=== PATIENT | male | born 1960 | race Caucasian/White ===

== ENCOUNTER → 2019-12-22 18:54 | Outpatient (BNVA) | payer MEDICAID, SELFPAY | PROVIDERS: Family Provider Family Medicine; PCP Family Medicine; Visit Provider Family Medicine | DX: I10 Essential (primary) hypertension (principal); I20.8 Other forms of angina pectoris; I25.810 Atherosclerosis of coronary artery bypass graft(s) without angina pectoris; K21.9 Gastro-esophageal reflux disease without esophagitis; J45.909 Unspecified asthma, uncomplicated; E11.9 Type 2 diabetes mellitus without complications; E11.65 Type 2 diabetes mellitus with hyperglycemia; Z79.4 Long term (current) use of insulin | CPT/HCPCS: 80053; 80061; 83036; 85025 ==

== ENCOUNTER → 2020-12-11 10:56 | Outpatient (BNVA) | payer MEDICAID, SELFPAY | PROVIDERS: Family Provider Family Medicine; PCP Family Medicine; Visit Provider Family Medicine | DX: I10 Essential (primary) hypertension (principal); E11.69 Type 2 diabetes mellitus with other specified complication; I25.810 Atherosclerosis of coronary artery bypass graft(s) without angina pectoris; K21.9 Gastro-esophageal reflux disease without esophagitis; Z79.4 Long term (current) use of insulin; J45.909 Unspecified asthma, uncomplicated; Z68.31 Body mass index [BMI] 31.0-31.9, adult; F17.210 Nicotine dependence, cigarettes, uncomplicated | CPT/HCPCS: 80053; 80061; 83036; 84443; 85025 ==

== ENCOUNTER → 2021-05-23 09:55 | Outpatient (BNVA) | payer MEDICAID, SELFPAY | PROVIDERS: Family Provider Family Medicine; PCP Family Medicine; Visit Provider Family Medicine | DX: J45.909 Unspecified asthma, uncomplicated (principal); I10 Essential (primary) hypertension; E11.69 Type 2 diabetes mellitus with other specified complication; I25.810 Atherosclerosis of coronary artery bypass graft(s) without angina pectoris; K21.9 Gastro-esophageal reflux disease without esophagitis; Z79.4 Long term (current) use of insulin | CPT/HCPCS: 80053; 80061; 83036; 84443; 85025 ==

== ENCOUNTER → 2021-10-23 10:52 | Outpatient (BNVA) | payer MEDICAID, SELFPAY | PROVIDERS: Family Provider Family Medicine; PCP Family Medicine; Visit Provider Nurse Practitioner Family | DX: Z12.5 Encounter for screening for malignant neoplasm of prostate (principal); E11.9 Type 2 diabetes mellitus without complications; I10 Essential (primary) hypertension; E78.00 Pure hypercholesterolemia, unspecified; Z79.4 Long term (current) use of insulin; I25.10 Atherosclerotic heart disease of native coronary artery without angina pectoris; J45.909 Unspecified asthma, uncomplicated | CPT/HCPCS: 80053; 80061; 83036; 84153 ==

== ENCOUNTER → 2022-02-04 10:23 | Outpatient (BNVA) | payer MEDICAID, SELFPAY | PROVIDERS: Family Provider Family Medicine; PCP Family Medicine; Visit Provider Nurse Practitioner Family | DX: I25.10 Atherosclerotic heart disease of native coronary artery without angina pectoris (principal); J45.909 Unspecified asthma, uncomplicated; I10 Essential (primary) hypertension; K21.9 Gastro-esophageal reflux disease without esophagitis; I25.810 Atherosclerosis of coronary artery bypass graft(s) without angina pectoris; Z12.11 Encounter for screening for malignant neoplasm of colon; Z53.20 Procedure and treatment not carried out because of patient's decision for unspecified reasons | CPT/HCPCS: 80053; 80061; 83036 ==

== ENCOUNTER → 2022-06-17 10:00 | Outpatient (BNVA) | payer MEDICAID, SELFPAY | PROVIDERS: Family Provider Family Medicine; PCP Family Medicine; Visit Provider Nurse Practitioner Family | DX: I25.10 Atherosclerotic heart disease of native coronary artery without angina pectoris (principal); J45.909 Unspecified asthma, uncomplicated; I10 Essential (primary) hypertension; E11.9 Type 2 diabetes mellitus without complications; Z79.4 Long term (current) use of insulin; E78.00 Pure hypercholesterolemia, unspecified; I25.810 Atherosclerosis of coronary artery bypass graft(s) without angina pectoris; K21.9 Gastro-esophageal reflux disease without esophagitis | CPT/HCPCS: 80053; 80061; 83036 ==

== ENCOUNTER → 2022-06-25 12:22 | Outpatient (BNVA) | payer MEDICAID, SELFPAY | PROVIDERS: Family Provider Family Medicine; PCP Family Medicine; Visit Provider Nurse Practitioner Family | DX: J45.909 Unspecified asthma, uncomplicated (principal); J18.9 Pneumonia, unspecified organism; J44.9 Chronic obstructive pulmonary disease, unspecified; F17.200 Nicotine dependence, unspecified, uncomplicated; I10 Essential (primary) hypertension; E11.9 Type 2 diabetes mellitus without complications; Z79.4 Long term (current) use of insulin | CPT/HCPCS: 80053 ==

== ENCOUNTER → 2022-07-25 13:55 | Outpatient (BNVA) | payer MEDICAID, SELFPAY | PROVIDERS: Family Provider Family Medicine; PCP Family Medicine; Visit Provider Nurse Practitioner Family | DX: J18.9 Pneumonia, unspecified organism (principal) | CPT/HCPCS: 71046 ==

== ENCOUNTER → 2022-08-06 11:34 | Outpatient (BNVA) | payer MEDICAID, SELFPAY | PROVIDERS: Family Provider Family Medicine; PCP Family Medicine; Visit Provider Nurse Practitioner Family | DX: J18.9 Pneumonia, unspecified organism (principal); J44.9 Chronic obstructive pulmonary disease, unspecified; J45.909 Unspecified asthma, uncomplicated | CPT/HCPCS: 71046; 80053 ==

== ENCOUNTER 2022-12-21 14:25 | Inpatient (IN) | payer MEDICAID, SELFPAY ==
[2022-12-21] VITALS (14 sets, daily range): BP systolic 115–189; BP diastolic 72–104; PULSE 75–110; RESP 16–34; TEMP 36.4–37.1; O2SAT 91–99; BMI 33.2
--- NOTE | 2022-12-21 14:42 | ECG_ITS ---
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1960 Requested By: Morgan Briscoe Order Number: [id number] Reading MD: NICOLE MORALES Measurements Intervals [place] Rate: 108 P: 60 DC: 198 QRS: 105 QRSD: 81 T: 85 QT: 334 QTc: 448 Interpretive Statements SINUS TACHYCARDIA WITH OCCASIONAL VENTRICULAR PREMATURE COMPLEXES RIGHT AXIS DEVIATION [QRS AXIS > 100] PATTERN CONSISTENT WITH PULMONARY DISEASE NONSPECIFIC T-WAVE ABNORMALITY No previous ECG available for comparison Electronically Signed On 12-21-2022 23:33:24 CDT by NICOLE MORALES [email or web address] medical centeriAdvize/store/[id number]
--- NOTE | 2022-12-21 15:43 | XRR_ITS ---
PROCEDURE INFORMATION: Exam: XR Chest Exam date and time: 12/21/2022 3:49 PM Age: 62 years old Clinical indication: Shortness of breath; Prior surgery; Surgery type: Heart stents TECHNIQUE: Imaging protocol: Radiologic exam of the chest. Views: 1 view. COMPARISON: CR XR chest 2V* [id number] 08/06/2022 11:40 AM FINDINGS: Lungs: Unremarkable. No consolidation. Pleural spaces: Elevated right hemidiaphragm. No pleural effusion. No pneumothorax. Heart/Mediastinum: Unremarkable. No cardiomegaly. Bones/joints: Unremarkable. Left upper lobe parenchymal density seen on prior examination has now resolved XR/XR chest 1V portable [id number] IMPRESSION: Elevated right hemidiaphragm No acute findings.
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
[2022-12-21 15:52] LABS: Basophils % 0.3 %; Hematocrit 47.6 % (42.0-52.0); Hemoglobin 14.6 g/dL (11.7-16.6); Lymphocytes # 0.8 10^3/uL (0.8-4.8); Lymphocytes % 12.5 %; Mean Corpuscular HGB Conc 30.7 g/dL (30.0-36.0); Mean Corpuscular Hemoglobin 27.4 pg (28.0-34.0); Mean Corpuscular Volume 89.5 fl (80-94); Mean Platelet Volume 10.7 fL (7.4-10.4); Monocytes # 0.5 10^3/uL (0.2-0.9); Monocytes % 8.4 %; Neutrophils # 4.77 10^3/uL (1.8-7.7); Neutrophils % 78.5 %; Nucleated Red Blood Cells % 0 %; Platelet Count 194 10^3/cmm (130-400); Red Blood Count 5.32 10^6/uL (4.1-5.3); Red Cell Distribution Width 14.2 % (12.1-15.1); White Blood Count 6.1 10^3/uL (4.0-10.0)
[2022-12-21] MEDS: FUROsemide 10 mg/mL SDV 4mL 40 MG IVP (15:52)
[2022-12-21] MEDS: ipratropium-albuterol 3 mL Neb INHALATION ×2 (15:59→23:25)
--- NOTE | 2022-12-21 16:12 | PC.NURSE ---
Pt refused covid and flu swabs
[2022-12-21 16:16] LABS: ABG PH Result 7.51 (7.35-7.45); Arterial Blood Gas Hematocrit 44.9 % (42-52); Base Excess ABG 4.9 mmol/L (-2.0-2.0); Blood Gas Allen Test Pos; Blood Gas Operator Identificat CAK; Blood Gas Sample Site Radial, left; Blood Gas Sample Type Arterial; Carboxyhemoglobin 1.4 %THgb (0.4-20.1); HCO3 ABG 27.8 mmol/L (22-26); HGB O2 Sat 97.6 % (95-100); Oxygen Device NC; Total Hemoglobin 14.7 g/dL (14-18)
[2022-12-21 16:19] LABS: Alanine Aminotransferase 75 U/L (0-41); Alkaline Phosphatase 126 U/L (40-130); Anion Gap 15.1 (5-19); Aspartate Amino Transferase 120 U/L (0-40); Blood Urea Nitrogen 14 mg/dL (8-23); Calcium 9.2 mg/dL (8.5-10.5); Carbon Dioxide 29 mmol/L (22-29); Chloride 93 mmol/L (98-107); Globulin 4.1 g/dL (1.3-4.6); Glomerular Filtration Rate 85.8 mL/min (90-130); Glucose 136 mg/dL (65-115); Osmolality Calculated 279 mOsm/kg (285-295); Potassium 4.1 mmol/L (3.5-5.1); Sodium 133 mmol/L (136-145); Total Protein 8.1 g/dL (6.6-8.7)
--- NOTE | 2022-12-21 17:56 | P.HP_ITS ---
Providers/Chief Complaint Primary Care Provider: Clau Wong NP Chief Complaint: Sob\Little Chest Pain\ History of Present Illness Ottoniel Rollins is a 62 year old male with past medical history of hypertension diabetes COPD not on home oxygen, coronary artery disease status post stent came in today with chief complaint of worsening shortness of breath going on for the last 4 to 5 days, and has worsened progressively, currently is complaining of orthopnea, shortness of breath with minimal exertion, cough. He has denied any chest pain palpitation diaphoresis nausea vomiting, though he said that he feels febrile, and also has chills. X-ray chest has not shown any: Pulm vascular congestion infiltrates consolidation EKG sinus tach with with occasional PVCs Pertinent labs: WBC 6.1, H&H 14/47,PLT : 194 , serum sodium 136 serum potassium 4.1, BUN 14 serum creatinine 0.9 Patient received nebs, steroids, and Lasix one-time dose in the ER Review of Systems General: Reports: 10 or more systems reviewed and unremarkable except in HPI and below Const: Denies: body aches, change in appetite or diaphoresis Card: Reports: dyspnea on exertion and orthopnea; Denies: palpitations Resp: Reports: dyspnea and wheezing; Denies: pain on inspiration GI: Denies: abdominal pain, nausea, vomiting, diarrhea or constipation : Denies: flank pain or difficulty urinating Musc: Denies: back pain, extremity pain or extremity swelling Neuro: Denies: headache(s), difficulty walking or confusion Medications/Allergies Home Medications Medication Instructions Recorded Confirmed Last Taken Type blood sugar diagnostic #150 ea 10/23/21 09/02/22 Unknown Rx nitroglycerin 0.4 mg sublingual 0.4 mg sublingual Q5M PRN chest 10/23/21 09/02/22 Unknown Rx tablet pain #25 tabs glucagon 1 mg solution for 1 mg SUBCUT Q20M PRN hypoglycemia 12/06/21 09/02/22 Unknown Rx injection (GlucaGen HypoKit) #1 ea DIABETIC INSOLES #1 ea 02/04/22 09/02/22 Unknown Rx DIABETIC SHOES #1 ea 02/04/22 09/02/22 Unknown Rx fexofenadine 180 mg tablet 180 mg PO DAILY #30 tabs 02/04/22 09/02/22 Unknown Rx (Vannessa Allergy) fluticasone propionate 50 2 spray intranasal DAILY #16 grams 02/04/22 09/02/22 Unknown Rx mcg/actuation nasal spray,suspension (Flonase Allergy Relief) fluticasone propionate 44 See Rx Instructions .Route 05/14/22 09/02/22 Unknown Rx mcg/actuation HFA aerosol inhaler .COMPLEX #31.8 grams (Flovent HFA) lancets #100 ea 06/17/22 09/02/22 Unknown Rx NEBULIZER MACHINE AND TUBING #1 ea 06/21/22 09/02/22 Unknown Rx blood-glucose meter #1 ea 06/21/22 09/02/22 Unknown Rx nebulizer tubing and supplies #1 ea 06/25/22 09/02/22 Unknown Rx nicotine 21 mg/24 hr daily 1 patch transdermal Q24H #28 ea 06/25/22 08/06/22 Unknown Rx transdermal patch (Nicoderm CQ) albuterol sulfate 90 mcg/actuation See Rx Instructions .Route 09/02/22 09/02/22 Unknown Rx aerosol inhaler (ProAir HFA) .COMPLEX #17 grams budesonide 160 mcg-glycopyr 9 2 inh inhalation BID 30 days #10.7 09/02/22 09/02/22 Unknown Rx mcg-formot 4.8 mcg/actuation HFA grams inhaler (Breztri Aerosphere) dapagliflozin 5 mg tablet (Farxiga) 5 mg PO QAM 30 days #30 tabs 09/02/22 09/02/22 Unknown Rx insulin NPH isoph U-100 human 100 See Rx Instructions .Route 09/02/22 09/02/22 Unknown Rx unit/mL subcutaneous suspension .COMPLEX #110 mL (Humulin N NPH U-100 Insulin (isophane susp)) insulin lispro 100 unit/mL See Rx Instructions .Route 09/02/22 09/02/22 Unknown Rx subcutaneous solution (Humalog .COMPLEX #80 mL U-100 Insulin) ipratropium 0.5 mg-albuterol 3 mg 3 ml inhalation QID PRN wheezing 09/02/22 09/02/22 Unknown Rx (2.5 mg base)/3 mL nebulization #180 mL soln metoprolol tartrate 25 mg tablet 12.5 mg PO BID #90 tabs 09/02/22 09/02/22 Unknown Rx potassium chloride 10 mEq 10 meq PO DAILY #30 caps 09/02/22 09/02/22 Unknown Rx capsule,extended release prasugrel 10 mg tablet 10 mg PO DAILY #30 tabs 09/02/22 09/02/22 Unknown Rx prednisone 10 mg tablets in a dose See Rx Instructions PO PER PKG DIR 09/02/22 09/02/22 Unknown Rx pack #21 ea promethazine-DM 6.25 mg-15 mg/5 mL 5 ml PO Q6H PRN cough #200 mL 09/02/22 09/02/22 Unknown Rx oral syrup sucralfate 1 gram tablet 1 g PO QID #120 tabs 09/02/22 09/02/22 Unknown Rx temazepam 30 mg capsule 30 mg PO .QHS 90 days #90 caps 09/11/22 Unknown Rx blood sugar diagnostic (Blood #50 ea 10/10/22 Unknown Rx Glucose Test strips) bumetanide 1 mg tablet See Rx Instructions .Route 11/07/22 Unknown Rx .COMPLEX #60 tabs clonidine HCl 0.1 mg tablet 0.1 mg PO TID #90 tabs 11/07/22 Unknown Rx insulin syringe-needle U-100 1 mL See Rx Instructions .Route 12/04/22 Unknown Rx 31 gauge x 5/16 (BD Insulin .COMPLEX #200 ea Syringe Ultra-Fine) Allergies Allergy/AdvReac Type Severity Reaction Status Date / Time Olbfgeu-XME-XbZ Reductase Allergy Intermediate muscle Verified 02/04/22 09:04 Inhibitor detioration [Ecogxdy-Euz-Hlq Reductase Inhibitor] magnesium Allergy ADR-Cramping Verified 02/04/22 09:04 of the Muscles PFSH Acute PFSH: Medical History Abnormal x-ray Allergic rhinitis ASHD (arteriosclerotic heart disease) Asthma Colon cancer screening Colon cancer screening declined Diabetes mellitus type 2, insulin dependent Pneumonia Prostate cancer screening Seasonal allergies Smoking addiction Family History Father Cancer Mother Diabetes Hyperlipidemia Hypertension Social History Smoking and tobacco status: never smoked Second hand smoke exposure: Yes Smoking risk assessment/counseling performed?: No Alcohol intake: unknown Desire information about substance/drug rehabilitation?: No Counseling given: No Other details last substance use: clean since 2014 Household members: spouse Marital status: Vitals/I&O/Wt Last Vital Signs Temp 98.8 F 12/21/22 14:36 Pulse 110 H 12/21/22 16:04 Resp 16 12/21/22 16:02 BP 181/99 12/21/22 16:02 Pulse Ox 93 12/21/22 16:02 O2 Del Method 12/21/22 16:02 O2 Flow Rate 3 12/21/22 15:50 Weight last 48 hrs Weight 111.13 kg Physical Exam Const: COMMON NORMALS: patient oriented x3 HENMT: COMMON NORMALS: normocephalic and atraumatic HEAD & SCALP: normocephalic and atraumatic Resp: OTHER: B/L EXPIRATORY WHEEZING PRESENT IN BOTH THE LUNGS [place]EN[place] Cardio: COMMON NORMALS: regular rate, regular rhythm, S1 normal heart sound present, S2 normal heart sound present, No gallops present (Cardio), No murmurs present (Cardio), No rub (Cardio) and Peripheral pulses 2+ throughout RATE: regular rate RHYTHM: regular rhythm HEART SOUNDS: S1 normal heart sound p resent and S2 normal heart sound present PERIPHERAL PULSES: Peripheral pulses 2+ throughout GI: COMMON NORMALS: Normal to inspection, nondistended, normoactive bowel sounds present, Soft to palpation, non-tender, No hepatosplenomegaly present and no masses AUSCULTATION: Yes normoactive bowel sounds PALPATION: Yes Soft to palpation and Yes No hepatosplenomegaly present RECTAL EXAM: Yes deferred Extremity: COMMON NORMALS: no clubbing, cyanosis or edema and no pedal edema Neuro: COMMON NORMALS: patient oriented x3 Data 12/21/22 15:22 12/21/22 15:22 A&P Assessment and plan (1) COPD exacerbation: (2) Hypoxia: (3) ASHD (arteriosclerotic heart disease): (4) Essential hypertension: (5) Diabetes mellitus type 2, insulin dependent: Plan 62 year old male with past medical history of hypertension diabetes COPD not on home oxygen, coronary artery disease status post stent came in today with chief complaint of worsening shortness of breath going on for the last 4 to 5 days, and has worsened progressively, currently is complaining of orthopnea, shortness of breath with minimal exertion, cough. He has denied any chest pain palpitation diaphoresis nausea vomiting, though he said that he feels febrile, and also has chills. Assessment: COPD exacerbation Continue DuoNebs, steroids, azithromycin IV, supplemental oxygen as needed Monitor x-ray chest and ABG as needed Antitussives History of coronary artery disease s/p stent: Continue prasugrel Given his complaint of orthopnea, worsening shortness of breath, will do 2D echo, for further evaluation. History of hypertension: Continue clonidine, and metoprolol History of diabetes: Continue sliding scale insulin, monitor fingerstick glucose, diabetic diet CODE STATUS; full code DVT prophylaxis on Lovenox Attestations Medical Necessity Statement*: Patient is to be in hospital management of COPD exacerbation.Anticipated length of stay greater 2 midnights Coding Level of Care Code 82684 Diagnoses COPD exacerbation J44.1 Hypoxia R09.02 ASHD (arteriosclerotic heart disease) I25.10 Essential hypertension I10 Diabetes mellitus type 2, insulin dependent E11.9; Z79.4
[2022-12-21] MEDS: metoprolol tartrate 25 mg Tablet 12.5 MG PO (19:35)
[2022-12-21 21:15] LABS: Glucose Point of Care 194 mg/dL (70-110)
--- NOTE | 2022-12-21 21:50 | PC.NURSE ---
Patient refusing Flu and COVID tests stating that it is against his oriental orthodox. No pork or shellfish-containing products per patient per his oriental orthodox.
[2022-12-21] MEDS: temazepam 15 mg Capsule 30 MG PO (21:56)
[2022-12-21] MEDS: cloNIDine 0.1 mg Tablet PO (21:56)
[2022-12-21] MEDS: azithromycin 500 MG in sodium chloride 0.9% 250 ML 250 MG IV (22:22)
--- NOTE | 2022-12-21 22:47 | PC.NURSE ---
Signed blood refusal form in chart.
[2022-12-21 23:05] LABS: Glucose Point of Care 207 mg/dL (70-110)
--- NOTE | 2022-12-21 23:17 | ECG_ITS ---
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1960 Requested By: Campbell Leslie Order Number: [id number] Reading MD: NICOLE MORALES Measurements Intervals [place] Rate: 96 P: 56 [place]: 218 QRS: 100 QRSD: 85 T: 60 QT: 354 QTc: 449 Interpretive Statements SINUS RHYTHM WITH FIRST DEGREE AV BLOCK BORDERLINE RIGHT AXIS DEVIATION [QRS AXIS > 90] PATTERN CONSISTENT WITH PULMONARY DISEASE NONSPECIFIC T-WAVE ABNORMALITY Compared to ECG 12/21/2022 14:48:30 First degree AV block now present Sinus tachycardia no longer present Ventricular premature complex(es) no longer present T-wave abnormality still present Electronically Signed On 12-21-2022 23:31:37 CDT by NICOLE MORALES [email or web address]/[id number]
[2022-12-21] MEDS: budesonide 0.5 mg/2 mL Neb INHALATION (23:27)
--- NOTE | 2022-12-21 23:42 | PC.NURSE ---
This nurse was called into patient's room by another rn. Patient was experiencing labored breathing, using abdominal muscles to breathe and grunting. O2 sat 95% on 3L simple mask. Patient had a new onset confusion. Respiratory was called. Dr. Leslie was notified and came up to see patient. Transfer orders put in to ICU. Edmar's states that patient has sleep apnea but insurance would not cover a cpap at home.
[2022-12-21 23:43] LABS: D Dimer 1.34 ug/mIFEU (0-0.59)
[2022-12-21 23:47] LABS: Troponin(5th) Baseline 31 ng/L (0-15)
--- NOTE | 2022-12-21 23:50 | W.PM.EVENTAC ---
Event Note Event Note: Shortly after 2300 patient in respiratory distress, diaphoretic, tachypneic, using accessory muscles of respiration. Regular tachycardia low 100s. Saturating in high 90s on 3 L nasal cannula. Has history of CAD, IN x3, but no chest pain or pressure. Obtain stat EKG, troponin, D-dimer. Noted admitted for assessment management of COPD exacerbation. ABG 7.51/35/110/20 7.8. Past medical history includes asthma. Discussing with his he also has sleep apnea and she states especially when he falls asleep breathing gets very weird . Discussed with RT, nursing staff. He is getting a breathing treatment. He states he is feeling better. Appears to be improving, but still using accessory muscles, although this does not sound like he is very much different from his baseline from what he tells me. Mild wheezing, diminished air entry. When he dozes off while discussing with his , he is noted to have quite significant apnea. They state that he has had a sleep study in the past, but he has not been able to afford a CPAP. With asthmatic/bronchospastic component given an extra breathing treatment, we are increase frequency of breathing treatments to every 4 hours scheduled, as well as every 2 hours as needed. We will reset Solu-Medrol additionally with additional dose currently, continue 60 mg every 6 hours thereafter. Patient and his state he is very intolerant of magnesium. Additionally his states symptoms seem to start while he was in the light of receiving azithromycin. Does not appear to have rash or any other symptoms of allergic reaction. Cannot exclude bronchospasm triggered by azithromycin, will discontinue medication at this time, switch antibiotic to Levaquin. I am told he additionally declined viral swabs. Keep on isolation. Follow-up troponin EKG series, D-dimer. Discussed with them regarding performing CT angiogram PE protocol in case D-dimer abnormal to further assess for PE. For now moved to ICU for intensive monitoring and treatment due to respiratory distress episode and bronchospasm. Case management consultation and he will need continued attempts to arrange for treatment for sleep apnea. Event Notes Attestations Time Spent in Patient Care: Critical care time 35 minutes.
[2022-12-21 23:54] LABS: ABG PCO2 48.8 mmHg (35-45); ABG PH Result 7.37 (7.35-7.45); Arterial Blood Gas Hematocrit 43.4 % (42-52); Base Excess ABG 1.9 mmol/L (-2.0-2.0); Blood Gas Sample Site Brachial, right; Blood Gas Sample Type Arterial; HCO3 ABG 28.1 mmol/L (22-26); Oxygen Device OXY MASK
[2022-12-22] VITALS (23 sets, daily range): BP systolic 114–134; BP diastolic 73–95; PULSE 85–109; RESP 16–32; TEMP 36.4–36.7; O2SAT 86–98; BMI 31.3
--- NOTE | 2022-12-22 | PC.NURSE ---
Report given to Lynsey in ICU
[2022-12-22] MEDS: iohexol 350 mg/mL 500 mL Btl (per mL) IV (00:07)
--- NOTE | 2022-12-22 01:02 | USR_ITS ---
PROCEDURE INFORMATION: Exam: US Duplex Lower Extremity Veins, Bilateral Exam date and time: 12/22/2022 1:21 AM Age: 62 years old Clinical indication: Edema, localized; Lower extremity, bilateral; Additional info: Assess for dvt TECHNIQUE: Imaging protocol: Real-time duplex ultrasound of the bilateral extremities with 2-D jeffries scale, color Doppler flow and spectral waveform analysis including responses to compression and other maneuvers (when performed) with image documentation. Complete exam focused on the lower extremity veins. COMPARISON: No relevant prior studies available. FINDINGS: Evaluated veins include bilateral common femoral, proximal profunda femoral, proximal/mid/distal superficial femoral, popliteal, posterior tibial, peroneal, anterior tibial, and proximal greater saphenous veins. Right leg: No visible clot in the included veins. The included veins appear normally compressible. Duplex Doppler evaluation demonstrates flow in the evaluated veins. Left leg: No visible clot in the included veins. The included veins appear normally compressible. Duplex Doppler evaluation demonstrates flow in the evaluated veins. US/[id number] IMPRESSION: 1. No evidence of acute right lower extremity DVT. 2. No evidence of acute left lower extremity DVT.
[2022-12-22] MEDS: apixaban 5 mg Tablet 10 MG PO (01:29)
[2022-12-22] MEDS: levofloxacin-dextrose 5 % 750 MG/150 ML PREMIX 100 MG IV (01:30)
[2022-12-22 01:55] LABS: Troponin 5 2HR 31.24 ng/L (0-15)
[2022-12-22 02:20] LABS: Troponin 5 2HR Delta 0.24 ABS# (0-10)
[2022-12-22] MEDS: ipratropium-albuterol 3 mL Neb INHALATION ×3 (03:10→12:34)
--- NOTE | 2022-12-22 03:14 | ECG_ITS ---
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
[2022-12-22 05:19] LABS: Hematocrit 43.6 % (42.0-52.0); Hemoglobin 13.3 g/dL (11.7-16.6); Lymphocytes # 0.5 10^3/uL (0.8-4.8); Lymphocytes % 12.4 %; Mean Corpuscular HGB Conc 30.5 g/dL (30.0-36.0); Mean Corpuscular Hemoglobin 27.5 pg (28.0-34.0); Mean Corpuscular Volume 90.3 fl (80-94); Mean Platelet Volume 10.9 fL (7.4-10.4); Monocytes # 0.1 10^3/uL (0.2-0.9); Monocytes % 2.7 %; Neutrophils # 3.48 10^3/uL (1.8-7.7); Neutrophils % 84.4 %; Nucleated Red Blood Cells % 0 %; Platelet Count 170 10^3/cmm (130-400); Red Blood Count 4.83 10^6/uL (4.1-5.3); White Blood Count 4.1 10^3/uL (4.0-10.0)
[2022-12-22 05:47] LABS: Troponin 5 6HR 26.62 ng/L (0-15)
[2022-12-22 05:52] LABS: Troponin 5 6HR Delta -4.38 ng/L (0-12)
[2022-12-22 06:01] LABS: NT Pro B Type Natriuretic Pept 3039 pg/mL (0-125); Procalcitonin 0.08 ng/mL (0-0.5)
[2022-12-22 06:12] LABS: Alanine Aminotransferase 61 U/L (0-41); Albumin Level 3.3 g/dL (3.5-5.2); Alkaline Phosphatase 100 U/L (40-130); Anion Gap 16.4 (5-19); Aspartate Amino Transferase 93 U/L (0-40); Blood Urea Nitrogen 21 mg/dL (8-23); Calcium 8.8 mg/dL (8.5-10.5); Carbon Dioxide 28 mmol/L (22-29); Chloride 97 mmol/L (98-107); Globulin 2.9 g/dL (1.3-4.6); Glomerular Filtration Rate 85.8 mL/min (90-130); Glucose 202 mg/dL (65-115); Magnesium 1.7 mg/dL (1.7-2.3); Osmolality Calculated 293 mOsm/kg (285-295); Potassium 4.4 mmol/L (3.5-5.1); Sodium 137 mmol/L (136-145); Total Bilirubin 0.7 mg/dL (0.15-1.2); Total Protein 6.2 g/dL (6.6-8.7)
[2022-12-22] MEDS: budesonide 0.5 mg/2 mL Neb INHALATION (07:57)
[2022-12-22 08:44] LABS: Glucose Point of Care 209 mg/dL (70-110)
[2022-12-22] MEDS: insulin lispro 100 unit/1 mL SUBCUT ×2 (09:22→12:42)
--- NOTE | 2022-12-22 09:23 | P.DS_ITS ---
Discharge Providers Date of Admission: 12/21/22 17:51 Date of Discharge: December 22, 2022 Attending Provider at Admission: Mazin Ovalle MD Attending Provider at Discharge: Mazin Ovalle MD Primary Care Provider: Clau Wong NP Diagnoses at Discharge Discharge Diagnosis (1) COPD exacerbation: Status: Acute (2) Hypoxia: Status: Acute (3) ASHD (arteriosclerotic heart disease): Status: Acute (4) Essential hypertension: Status: Acute (5) Diabetes mellitus type 2, insulin dependent: Status: Acute Reason for Visit Reason for Visit: Sob\Little Chest Pain\ Hospital Course Hospital Course 62 year old male with past medical history of hypertension diabetes COPD not on home oxygen, coronary artery disease status post stent came in with chief complaint of worsening shortness of breath going on for the last 4 to 5 days, he was admitted for the management of COPD exacerbation, he was initially kept on DuoNebs steroids, azithromycin, supplemental oxygen as needed, patient on the day of admission and the night, exhibited worsening respiratory function, for which she received additional doses of steroids, azithromycin was discontinued, possibly thinking some reaction to it, and was started on levofloxacin, possibility of PE was also considered, D-dimer is slightly elevated, lower extremity Doppler vein was negative for DVT, patient received 1 dose of Eliquis overnight, he was advised to undergo CTA chest, which she denied, as they did not wanted any contrast exposure, they also denied VQ scan, patient also denied therapeutic anticoagulation. There is also concern for possible sleep apnea, patient agreed for sleep study. Patient was discharged home on prednisone 50 mg p.o. daily for 7 days, he will continue on home inhaler as well as nebs, he was also discharged on levofloxacin for additional 5 days, Bumex has been discontinued, as patient is currently well compensated, and currently is not in heart failure, he has been started on very low-dose of Lasix 20 p.o. daily, he was advised to, follow-up with his cardiology as outpatient, as well as his PCP.Overall patient responded well to above medical management, he has qualified for 2 L home oxygen. He is being discharged in stable condition to home. Physical Exam Const: COMMON NORMALS: patient oriented x3 HENMT: COMMON NORMALS: normocephalic and atraumatic HEAD & SCALP: normocephalic and atraumatic Resp: OTHER: B/L EXPIRATORY WHEEZING PRESENT IN BOTH THE LUNGS STEPHENSON improved as compared to yesterday on admission Cardio: COMMON NORMALS: regular rate, regular rhythm, S1 normal heart sound present, S2 normal heart sound present, No gallops present (Cardio), No murmurs present (Cardio), No rub (Cardio) and Peripheral pulses 2+ throughout RATE: regular rate RHYTHM: regular rhythm HEART SOUNDS: S1 normal heart sound present and S2 normal heart sound present PERIPHERAL PULSES: Peripheral pulses 2+ throughout GI: COMMON NORMALS: Normal to inspection, nondistended, normoactive bowel sounds present, Soft to palpation, non-tender, No hepatosplenomegaly present and no masses AUSCULTATION: Yes normoactive bowel sounds PALPATION: Yes Soft to palpation and Yes No hepatosplenomegaly present RECTAL EXAM: Yes deferred Extremity: COMMON NORMALS: no clubbing, cyanosis or edema and no pedal edema Neuro: COMMON NORMALS: patient oriented x3 Discharge Data Studies Completed and Pending Completed Studies During Hospitalization Category Date Time Status XR chest 1V portable [id number] Stat Exams 12/21/22 15:43 Completed CV venous duplex [facility] [id number] Routine Ultrasound 12/22/22 01:02 Completed Pending at discharge Category Date Time Status COVID [SARS Covid-2 Antigen] Routine Lab 12/21/22 16:09 Ordered Complete Blood Count w/Auto AM LABS Lab 12/23/22 04:00 Ordered Complete Blood Count w/Auto AM LABS Lab 12/24/22 04:00 Ordered Comprehensive Metabolic Panel AM LABS Lab 12/23/22 04:00 Ordered Comprehensive Metabolic Panel AM LABS Lab 12/24/22 04:00 Ordered D Dimer AM LABS Lab 12/23/22 04:00 Ordered D Dimer AM LABS Lab 12/24/22 04:00 Ordered Influenza A&B by IFA Stat Lab 12/21/22 16:09 Ordered CV. echo complete* [id number] Routine Ultrasound 12/22/22 06:00 Ordered Radiology Impressions Chest X-Ray 12/21/22 15:43 IMPRESSION: Elevated right hemidiaphragm No acute findings. Venous Duplex 12/22/22 01:02 IMPRESSION: 1. No evidence of acute right lower extremity DVT. 2. No evidence of acute left lower extremity DVT. Laboratory Results WBC 4.1 10^3/uL (4.0-10.0) 12/22/22 04:45 RBC 4.83 10^6/uL (4.1-5.3) 12/22/22 04:45 Hgb 13.3 g/dL (11.7-16.6) 12/22/22 04:45 Hct 43.6 % (42.0-52.0) 12/22/22 04:45 MCV 90.3 fl (80-94) 12/22/22 04:45 MCH 27.5 pg (28.0-34.0) L 12/22/22 04:45 MCHC 30.5 g/dL (30.0-36.0) 12/22/22 04:45 RDW 14.0 % (12.1-15.1) 12/22/22 04:45 Plt Count 170 10^3/cmm (130-400) 12/22/22 04:45 MPV 10.9 fL (7.4-10.4) H 12/22/22 04:45 Neut % (Auto) 84.4 % 12/22/22 04:45 Lymph % (Auto) 12.4 % 12/22/22 04:45 Overton % (Auto) 2.7 % 12/22/22 04:45 Eos % (Auto) 0.0 % 12/22/22 04:45 Baso % (Auto) 0.0 % 12/22/22 04:45 Neut # (Auto) 3.48 10^3/uL (1.8-7.7) 12/22/22 04:45 Lymph # (Auto) 0.5 10^3/uL (0.8-4.8) L 12/22/22 04:45 Overton # (Auto) 0.1 10^3/uL (0.2-0.9) L 12/22/22 04:45 Eos # (Auto) 0.0 10^3/uL (0.0-0.8) 12/22/22 04:45 Baso # (Auto) 0.0 10^3/uL (0.0-0.1) 12/22/22 04:45 Nucleated RBC % (auto) 0 % 12/22/22 04:45 Nucleated RBCs # 0.0 /100WBC 12/22/22 04:45 D-Dimer 1.20 ug/mIFEU (0-0.59) H 12/22/22 04:45 Specimen Type Arterial 12/21/22 23:43 Sample Site Brachial, right 12/21/22 23:43 ABG pH 7.37 (7.35-7.45) 12/21/22 23:43 ABG pCO2 48.8 mmHg (35-45) H 12/21/22 23:43 ABG pO2 117.0 mmHg (80.0-100.0) H 12/21/22 23:43 ABG HCO3 28.1 mmol/L (22-26) H 12/21/22 23:43 ABG Base Excess 1.9 mmol/L (-2.0-2.0) 12/21/22 23:43 Sumit Test N/a 12/21/22 23:43 Hematocrit 43.4 % (42-52) 12/21/22 23:43 Hgb O2 Saturation 97.6 % (95-100) 12/21/22 15:54 Carboxyhemoglobin 1.4 %THgb (0.4-20.1) 12/21/22 15:54 Methemoglobin 0.0 % (0.4-1.5) L 12/21/22 15:54 Total Hemoglobin 14.7 g/dL (14-18) 12/21/22 15:54 O2 Delivery Device Oxy mask 12/21/22 23:43 O2 Liters/Min 3.0 % 12/21/22 23:43 FiO2 32.0 % 12/21/22 23:43 Supervisor [employer] Saranya 12/21/22 23:43 Sodium 137 mmol/L (136-145) 12/22/22 04:45 Potassium 4.4 mmol/L (3.5-5.1) 12/22/22 04:45 Chloride 97 mmol/L (98-107) L 12/22/22 04:45 Carbon Dioxide 28 mmol/L (22-29) 12/22/22 04:45 Anion Gap 16.4 (5-19) 12/22/22 04:45 BUN 21 mg/dL (8-23) 12/22/22 04:45 Creatinine 0.9 mg/dL (0.7-1.2) 12/22/22 04:45 GFR Calculation 85.8 mL/min (90-130) L 12/22/22 04:45 Glucose 202 mg/dL (65-115) H 12/22/22 04:45 POC Glucose 209 mg/dL (70-110) H 12/22/22 08:40 Calculated Osmolality 293 mOsm/kg (285-295) 12/22/22 04:45 Calcium 8.8 mg/dL (8.5-10.5) 12/22/22 04:45 Magnesium 1.7 mg/dL (1.7-2.3) 12/22/22 04:45 Total Bilirubin 0.7 mg/dL (0.15-1.2) 12/22/22 04:45 AST 93 U/L (0-40) H 12/22/22 04:45 ALT 61 U/L (0-41) H 12/22/22 04:45 Alkaline Phosphatase 100 U/L (40-130) 12/22/22 04:45 Troponin T Baseline 31 ng/L (0-15) H 12/21/22 23:20 Troponin T 120 Minute 31.24 ng/L (0-15) H 12/22/22 01:10 Delta Troponin T 0.24 ABS# (0-10) 12/22/22 01:10 Troponin T Hi Sens 6Hr 26.62 ng/L (0-15) H 12/22/22 04:45 Troponin T Hi Sens 6Hr Delta -4.38 ng/L (0-12) L 12/22/22 04:45 NT-Pro-B Natriuret Pep 3039 pg/mL (0-125) H 12/22/22 04:45 Total Protein 6.2 g/dL (6.6-8.7) L D 12/22/22 04:45 Albumin 3.3 g/dL (3.5-5.2) L 12/22/22 04:45 Globulin 2.9 g/dL (1.3-4.6) 12/22/22 04:45 Procalcitonin 0.08 ng/mL (0-0.5) 12/22/22 04:45 Vitals Last Vital Signs Temp 97.8 F 12/22/22 04:00 Pulse 95 12/22/22 07:57 Resp 16 12/22/22 07:57 BP 115/75 12/22/22 06:00 Pulse Ox 88 L 12/22/22 07:57 O2 Del Method 03/19/23 07:57 O2 Flow Rate 4 12/22/22 03:10 FiO2 28 12/22/22 04:02 Discharge Plan Discharge Patient Disposition: Home Condition: Stable Prescriptions: New prednisone 50 mg tablet 50 mg PO DAILY 7 Days Qty: 7 0RF levofloxacin 500 mg tablet 500 mg PO DAILY 5 Days Qty: 5 0RF Lasix 40 mg tablet 20 mg PO DAILY Qty: 30 0RF benzonatate 100 mg capsule 100 mg PO TID PRN (Reason: cough) Qty: 20 0RF Continued (DME) blood sugar diagnostic Strip See Rx Instructions .ROUTE .MEDSUPPLY Qty: 150 6RF Rx Instructions: to test 5 times per day nitroglycerin 0.4 mg tablet, sublingual 0.4 mg SUBLINGUAL Q5M PRN (Reason: chest pain) Qty: 25 0RF Rx Instructions: Place one tablet under tongue as needed for chest pain every 5 minutes up to 3 doses fluticasone propionate [Flonase Allergy Relief] 50 mcg/actuation spray,suspension 2 spray intranasal DAILY Qty: 16 6RF Rx Instructions: administer into each nostril fexofenadine [Vannessa Allergy] 180 mg tablet 180 mg PO DAILY Qty: 30 6RF (DME) DIABETIC SHOES See Rx Instructions .Route .MEDSUPPLY Qty: 1 0RF Rx Instructions: DIABETIC SHOES (DME) DIABETIC INSOLES See Rx Instructions .Route .MEDSUPPLY Qty: 1 0RF Rx Instructions: FOR USE WITH DIABETIC SHOES promethazine-DM 6.25-15 mg/5 mL syrup 5 ml PO Q6H PRN (Reason: cough) Qty: 200 1RF Breztri Aerosphere 160-9-4.8 mcg/actuation HFA aerosol inhaler 2 inh inhalation BID 30 Days Qty: 10.7 11RF albuterol sulfate [ProAir HFA] 90 mcg/actuation HFA aerosol inhaler See Rx Instructions .ROUTE .COMPLEX Qty: 17 3RF Dose Instruction: inhale TWO puffs into lungs EVERY 4 TO 6 HOURS NEEDED FOR SHORTNESS OF BREATH Rx Instructions: inhale TWO puffs into lungs EVERY 4 TO 6 HOURS NEEDED FOR SHORTNESS OF BREATH Farxiga 5 mg tablet 5 mg PO QAM 30 Days Qty: 30 3RF insulin lispro [Humalog U-100 Insulin] 100 unit/mL solution See Rx Instructions .ROUTE .COMPLEX Qty: 80 4RF Dose Instruction: inject 50 units SUBCUTANEOUSLY DIRECTED 3-5 times daily Rx Instructions: inject 50 units SUBCUTANEOUSLY DIRECTED 3-5 times daily Humulin N NPH U-100 Insulin 100 unit/mL suspension See Rx Instructions .ROUTE .COMPLEX Qty: 110 1RF Dose Instruction: inject 100 units SUBCUTANEOUSLY TWICE DAILY Rx Instructions: inject 100 units SUBCUTANEOUSLY TWICE DAILY metoprolol tartrate 25 mg tablet 12.5 mg PO BID Qty: 90 3RF potassium chloride 10 mEq capsule, extended release 10 meq PO DAILY Qty: 30 3RF prasugrel 10 mg tablet 10 mg PO DAILY Qty: 30 3RF sucralfate 1 gram tablet 1 g PO QID Qty: 120 3RF ipratropium-albuterol 0.5 mg-3 mg(2.5 mg base)/3 mL solution for nebulization 3 ml inhalation QID PRN (Reason: wheezing) Qty: 180 1RF (DME) lancets Misc See Rx Instructions .ROUTE .MEDSUPPLY Qty: 100 4RF Rx Instructions: lancets to test 5 times per day. uses one touch nicotine [Nicoderm CQ] 21 mg/24 hr patch 24 hour 1 patch transdermal Q24H Qty: 28 0RF (DME) nebulizer tubing and supplies See Rx Instructions .Route .MEDSUPPLY Qty: 1 4RF Rx Instructions: As directed to be used with nebulizer machined. midst GlucaGen HypoKit 1 mg recon soln 1 mg SUBCUT Q20M PRN (Reason: hypoglycemia) Qty: 1 2RF Rx Instructions: until target blood sugar attained (DME) blood-glucose meter Kit See Rx Instructions .Route Qty: 1 0RF Rx Instructions: As directed CHECKING 5 TIMES DAILY (DME) NEBULIZER MACHINE AND TUBING See Rx Instructions .Route .MEDSUPPLY Qty: 1 0RF Rx Instructions: As directed temazepam 30 mg capsule 30 mg PO .QHS 90 Days Qty: 90 0RF (DME) Blood Glucose Test Strip See Rx Instructions .Route Qty: 50 5RF Rx Instructions: As directed TESTING 5 TIMES DAILY clonidine HCl 0.1 mg tablet 0.1 mg PO TID Qty: 90 2RF insulin syringe-needle U-100 [BD Insulin Syringe Ultra-Fine] 1 mL 31 gauge x 5/16 syringe See Rx Instructions .ROUTE .COMPLEX Qty: 200 4RF Dose Instruction: USE EIGHT syringes PER DAY Rx Instructions: USE EIGHT syringes PER DAY fluticasone propionate 44 mcg/actuation HFA aerosol inhaler See Rx Instructions .ROUTE .COMPLEX 30 Days Qty: 31.8 2RF Dose Instruction: inhale TWO puffs into lungs TWICE DAILY Rx Instructions: inhale TWO puffs into lungs TWICE DAILY Discontinued prednisone 10 mg tablets,dose pack See Rx Instructions PO PER PKG DIR Qty: 21 0RF Rx Instructions: PO PER PKG DIR bumetanide 1 mg tablet See Rx Instructions .ROUTE .COMPLEX Qty: 60 1RF Dose Instruction: TAKE ONE TABLET BY MOUTH TWICE DAILY NEEDED FOR EDEMA Rx Instructions: TAKE ONE TABLET BY MOUTH TWICE DAILY NEEDED FOR EDEMA Discharge Orders: Discharge Order (Routine); Ordered 12/22/22 Ordered By: Mazin Amaral Ambulatory Orders: Sleep Study/Titration (Routine) Timeframe: 1 Week Facility: [facility] - Location: [facility] Ordered By: Mazin Ovalle DME: Oxygen (Order) Location: None Selected Ordered By: Mazin Ovalle Referrals: [facility] (Medicaid Tranportation) [Other] [place] In Home Services Setup [Other] (Call this number to get In Home Services setup. They will ask you questions & based off your answers you are given points. You have to have a certain number of points to qualify. ) [facility] [Outside] Clau Wong, [employer] ATTENDANT [Primary Care Provider] - Patient Instructions: Furosemide (By mouth), Prednisone (By mouth), Levofloxacin (By mouth), Sleep Apnea (GEN), Using Oxygen at Home (ED), COPD (Chronic Obstructive Pulmonary Disease) (DC), Hypoxia (GEN), Opioid Safety, Pain Management Discharge Attestations Time Spent in Discharge Care*: greater than 30 min Quality Metrics Clinical Quality Measures [ No reported AMI, CVA or VTE this stay] Coding Level of Care Code Acute Code for Chg Fwd Diagnoses COPD exacerbation J44.1 Hypoxia R09.02 ASHD (arteriosclerotic heart disease) I25.10 Essential hypertension I10 Diabetes mellitus type 2, insulin dependent E11.9; Z79.4
[2022-12-22] MEDS: metoprolol tartrate 25 mg Tablet 12.5 MG PO (09:41)
[2022-12-22] MEDS: FUROsemide 10 mg/mL SDV 4mL 40 MG IVP (09:41)
[2022-12-22] MEDS: cloNIDine 0.1 mg Tablet PO (09:41)
[2022-12-22] MEDS: prasugrel 10 MG Tablet PO (10:06)
[2022-12-22 12:43] LABS: Glucose Point of Care 319 mg/dL (70-110)
--- NOTE | 2022-12-22 15:40 | PC.NURSE ---
Discharge Note Patient discharged home via wheelchair accompanied by spouse. At time of discharge patient is alert/oriented x4. Discharge instructions reviewed with patient and spouse, both verbalized understanding of teaching. All questions answered at this time. All belongings sent home with patient upon discharge.
== END 2022-12-22 15:40 | disposition home or self-care (01) | DRG 192 ==
LOC: ER 17:52 → MEDSURG 19:28 → ICU 12-22 07:29
PROVIDERS: Internal Medicine; Admitting Provider Internal Medicine; Emergency Provider Family Medicine; PCP Nurse Practitioner Family; Visit Provider Internal Medicine
DX: J44.1 Chronic obstructive pulmonary disease with (acute) exacerbation (principal); I25.10 Atherosclerotic heart disease of native coronary artery without angina pectoris; Z95.5 Presence of coronary angioplasty implant and graft; I10 Essential (primary) hypertension; E11.9 Type 2 diabetes mellitus without complications; Z99.81 Dependence on supplemental oxygen; G47.30 Sleep apnea, unspecified; Z79.51 Long term (current) use of inhaled steroids; Z79.4 Long term (current) use of insulin; Z87.01 Personal history of pneumonia (recurrent)
CPT/HCPCS: 36415; 36416; 36600; 71045; 80053; 82803; 82805; 82962; 83735; 83880; 84145; 84484; 85025; 85378; 93005; 93970; 94640; 94660; 94760; 96372; 96374; 96375; 96376; 99285; J0456; J1815; J1940; J1956; J2930; J7050; J7626; Q9967

== ENCOUNTER 2023-01-27 05:07 | Emergency (ER) | payer MEDICAID, SELFPAY ==
[2023-01-27 05:07] VITALS: BP 156/94; PULSE 107; RESP 20; TEMP 36.6; O2SAT 97; BMI 30.4
--- NOTE | 2023-01-27 05:24 | XRR_ITS ---
PROCEDURE INFORMATION: Exam: XR Right Foot Exam date and time: 01/27/2023 5:31 AM Age: 62 years old Clinical indication: Pain; Foot; Right; Additional info: R foot pain possible injury TECHNIQUE: Imaging protocol: Radiologic exam of the right foot. Views: 3 or more views. COMPARISON: [place] [id number] 12/22/2022 1:21 AM FINDINGS: Bones/joints: Normal alignment. No acute fractures. There is mild spurring on the Achilles aspect of the calcaneus. Soft tissues: Normal. XR/XR foot RT min 3V* [id number] IMPRESSION: No acute injury.
--- NOTE | 2023-01-27 05:24 | USR_ITS ---
PROCEDURE INFORMATION: Exam: US Duplex Right Lower Extremity Arteries Or Arterial Bypass Grafts Exam date and time: 01/27/2023 6:21 AM Age: 62 years old Clinical indication: Pain; Foot; Right; Additional info: R foot pain, discoloration, cool TECHNIQUE: Imaging protocol: Right Real-time duplex scan of the arteries or arterial bypass grafts of the right lower extremity with 2-D jeffries scale, color Doppler flow and spectral waveform analysis. Images documented and saved. COMPARISON: [place] [id number] 12/22/2022 1:21 AM FINDINGS: Right external iliac artery: Peak systolic in the right iliac artery 108 cm/s. Triphasic waveform. Right common femoral artery: Peak systolic velocity 92 cm/s. Triphasic waveform. Right superficial femoral artery: Peak systolic velocity of 107 cm/s. Triphasic waveform. Right popliteal artery: Peak systolic velocity of 107 cm/s. Triphasic waveform. Right calf/foot arteries: Peak systolic velocity of 78 cm/s in the posterior tibial artery, with triphasic waveform. Peak systolic velocity of 99 cm/s in the dorsalis pedis artery, with biphasic waveform. Soft tissues: No hematoma or collection. Other findings: GLENIS:1 US/[place] [id number] IMPRESSION: No significant stenosis or occlusion.
[2023-01-27 05:26] VITALS: BP 151/106; PULSE 100; RESP 16; O2SAT 97
--- NOTE | 2023-01-27 05:26 | W.ED.EXTPRO ---
Documented by User: Vikas Olivier DO 01/27/23 06:05 HPI - Extremity Problem General: Chief complaint: Extremity Injury, Lower Stated complaint: Rt Foot Injury Time Seen by Provider: 01/27/23 05:13 Source: patient History of Present Illness: 62-year-old male with a history of coronary artery disease. He presents with several days of right foot pain, redness/discoloration and swelling. He was in the hospital he says about 3 weeks ago and both lower extremities were swollen. He was on Lasix which did not seem to help much. He then switched to bumetanide which seem to help the swelling significantly. At some point, he began to get increased pain with discoloration to the foot the last couple of days. He relates potential injury to kicking a pet turkey when it tried to get out of a pin a few days ago, but otherwise is unsure of any injury. He has a history of diabetic neuropathy, so his feet are numb most of the time. No fever. MD Complaint: extremity pain and extremity swelling Onset (ago): day(s) Pain Consistency: constant Location: right and lower extremity Quality: aching Radiation: none Relieving factors: immobilization Exacerbating factors: weight bearing Associated symptoms: Reports rash; Deny chest pain, fever(s), myalgias or short of breath Review of Systems Const: Denies: fever(s) Card: Denies: chest pain Resp: Denies: dyspnea GI: Denies: vomiting Skin/Breast: Reports: rash PFSH ED PFSH: Medical History Abnormal x-ray Allergic rhinitis ASHD (arteriosclerotic heart disease) Asthma Colon cancer screening Colon cancer screening declined COPD exacerbation Diabetes mellitus type 2, insulin dependent Essential hypertension Hypoxia Pneumonia Prostate cancer screening Seasonal allergies Smoking addiction Family History Father Cancer Mother Diabetes Hyperlipidemia Hypertension Social History Smoking and tobacco status: never smoked Second hand smoke exposure: Yes Smoking risk assessment/counseling performed?: No Alcohol intake: unknown Substance/Drug Use: former 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 Desire information about substance/drug rehabilitation?: No Counseling given: No Other details last substance use: clean since 2014 Household members: spouse Marital status: Physical Exam Const: COMMON NORMALS: no acute distress GENERAL APPEARANCE: cooperative and comfortable; not ill appearing and not frail appearing HENMT: COMMON NORMALS: normocephalic and atraumatic HEAD & SCALP: normocephalic and atraumatic FACE & SINUS: normal facial exam and face symmetric Eye: COMMON NORMALS: Equal, round and reactive pupils present and EOMs intact bilaterally PUPIL: Yes Equal, round and reactive pupils present Neck/C-Spine: GENERAL: Yes trachea midline Chest: CHEST: Yes Symmetrical chest wall rise Resp: COMMON NORMALS: normal respiratory effort, No use of accessory muscles and clear to auscultation bilaterally AUSCULTATION: clear to auscultation bilaterally Cardio: COMMON NORMALS: regular rate and regular rhythm RATE: regular rate RHYTHM: regular rhythm Extremity: NARRATIVE EXTREMITY EXAM: Exam of the right lower extremity reveals mild swelling of the foot. There are some tenderness over the dorsum of the midfoot forefoot junction. There is ecchymosis in the area with surrounding beefy cellulitic redness. No deformity. Course Vital Signs: Vital signs: Vital Signs Temperature 97.8 F 01/27/23 05:07 Pulse Rate 100 01/27/23 05:26 Respiratory Rate 16 01/27/23 05:26 Blood Pressure 151/106 01/27/23 05:26 Pulse Oximetry 97 01/27/23 05:26 Oxygen Delivery Me thod Room Air 01/27/23 05:26 MDM - Extremity (Nontraumatic) Medical Decision Making No definite fracture on x-ray. CBC is normal. Other laboratories pending. He will be checked out to the oncoming physician at shift change pending CRP, lactate, sed rate, and vascular ultrasound Lab Data 01/27/23 05:38 01/27/23 05:38 Radiology Impressions Duplex Scan Lower Extremity Artery 01/27/23 05:24 IMPRESSION: No significant stenosis or occlusion. Foot X-Ray 01/27/23 05:24 IMPRESSION: No acute injury. Laboratory Results WBC 9.0 10^3/uL (4.0-10.0) 01/27/23 05:38 RBC 5.68 10^6/uL (4.1-5.3) H 01/27/23 05:38 Hgb 15.4 g/dL (11.7-16.6) 01/27/23 05:38 Hct 49.0 % (42.0-52.0) 01/27/23 05:38 MCV 86.3 fl (80-94) 01/27/23 05:38 MCH 27.1 pg (28.0-34.0) L 01/27/23 05:38 MCHC 31.4 g/dL (30.0-36.0) 01/27/23 05:38 RDW 15.9 % (12.1-15.1) H 01/27/23 05:38 Plt Count 226 10^3/cmm (130-400) 01/27/23 05:38 MPV 9.9 fL (7.4-10.4) 01/27/23 05:38 Neut % (Auto) 55.8 % 01/27/23 05:38 Lymph % (Auto) 24.7 % 01/27/23 05:38 [place] % (Auto) 13.7 % 01/27/23 05:38 Eos % (Auto) 3.7 % 01/27/23 05:38 Baso % (Auto) 0.9 % 01/27/23 05:38 Neut # (Auto) 5.04 10^3/uL (1.8-7.7) 01/27/23 05:38 Lymph # (Auto) 2.2 10^3/uL (0.8-4.8) 01/27/23 05:38 [place] # (Auto) 1.2 10^3/uL (0.2-0.9) H 01/27/23 05:38 Eos # (Auto) 0.3 10^3/uL (0.0-0.8) 01/27/23 05:38 Baso # (Auto) 0.1 10^3/uL (0.0-0.1) 01/27/23 05:38 Nucleated RBC % (auto) 0 % 01/27/23 05:38 Nucleated RBCs # 0.0 /100WBC 01/27/23 05:38 ESR 21 mm/hr (0-10) H 01/27/23 05:38 Sodium 136 mmol/L (136-145) 01/27/23 05:38 Potassium 4.1 mmol/L (3.5-5.1) 01/27/23 05:38 Chloride 101 mmol/L (98-107) 01/27/23 05:38 Carbon Dioxide 25 mmol/L (22-29) 01/27/23 05:38 Anion Gap 14.1 (5-19) 01/27/23 05:38 BUN 17 mg/dL (8-23) 01/27/23 05:38 Creatinine 0.8 mg/dL (0.7-1.2) 01/27/23 05:38 GFR Calculation 98.3 mL/min (90-130) 01/27/23 05:38 Glucose 114 mg/dL (65-115) 01/27/23 05:38 Calculated Osmolality 284 mOsm/kg (285-295) L 01/27/23 05:38 Lactate 1.6 mmol/L (0.5-2.2) 01/27/23 05:38 Calcium 9.2 mg/dL (8.5-10.5) 01/27/23 05:38 Total Bilirubin 0.5 mg/dL (0.15-1.2) 01/27/23 05:38 AST 32 U/L (0-40) 01/27/23 05:38 ALT 36 U/L (0-41) 01/27/23 05:38 Alkaline Phosphatase 119 U/L (40-130) 01/27/23 05:38 C-Reactive Protein 3.0 mg/L (0.0-4.9) 01/27/23 05:38 Total Protein 7.5 g/dL (6.6-8.7) 01/27/23 05:38 Albumin 3.9 g/dL (3.5-5.2) 01/27/23 05:38 Globulin 3.6 g/dL (1.3-4.6) 01/27/23 05:38 Discharge Plan Discharge Patient Disposition: Home Clinical Impression: Cellulitis Condition: Stable Prescriptions: New Bactrim DS 800-160 mg tablet 1 tab PO BID 7 Days Qty: 14 0RF No Action (DME) blood sugar diagnostic Strip See Rx Instructions .ROUTE .MEDSUPPLY Qty: 150 6RF Rx Instructions: to test 5 times per day nitroglycerin 0.4 mg tablet, sublingual 0.4 mg SUBLINGUAL Q5M PRN (Reason: chest pain) Qty: 25 0RF Rx Instructions: Place one tablet under tongue as needed for chest pain every 5 minutes up to 3 doses fluticasone propionate [Flonase Allergy Relief] 50 mcg/actuation spray,suspension 2 spray intranasal DAILY Qty: 16 6RF Rx Instructions: administer into each nostril fexofenadine [Vannessa Allergy] 180 mg tablet 180 mg PO DAILY Qty: 30 6RF (DME) DIABETIC SHOES See Rx Instructions .Route .MEDSUPPLY Qty: 1 0RF Rx Instructions: DIABETIC SHOES (DME) DIABETIC INSOLES See Rx Instructions .Route .MEDSUPPLY Qty: 1 0RF Rx Instructions: FOR USE WITH DIABETIC SHOES insulin lispro [Humalog U-100 Insulin] 100 unit/mL solution See Rx Instructions .ROUTE .COMPLEX Qty: 80 4RF Dose Instruction: inject 50 units SUBCUTANEOUSLY DIRECTED 3-5 times daily Rx Instructions: inject 50 units SUBCUTANEOUSLY DIRECTED 3-5 times daily metoprolol tartrate 25 mg tablet 12.5 mg PO BID Qty: 90 3RF ipratropium-albuterol 0.5 mg-3 mg(2.5 mg base)/3 mL solution for nebulization 3 ml inhalation QID PRN (Reason: wheezing) Qty: 180 1RF benzonatate 100 mg capsule 100 mg PO TID PRN (Reason: cough) Qty: 30 2RF levofloxacin 750 mg tablet 750 mg PO DAILY 5 Days Qty: 5 0RF prednisone 10 mg tablet 40 mg PO .COMPLEX Qty: 21 0RF Rx Instructions: 40 mg po for 2 days, then 3 tabs once daily for 2 days, then 2 tab once a day for 2 days, then 1 tab daily for 3 days temazepam 30 mg capsule 30 mg PO .QHS 90 Days Qty: 90 0RF albuterol sulfate [ProAir HFA] 90 mcg/actuation HFA aerosol inhaler See Rx Instructions .ROUTE .COMPLEX Qty: 17 3RF Dose Instruction: inhale TWO puffs into lungs EVERY 4 TO 6 HOURS NEEDED FOR SHORTNESS OF BREATH Rx Instructions: inhale TWO puffs into lungs EVERY 4 TO 6 HOURS NEEDED FOR SHORTNESS OF BREATH (DME) lancets [facility] [place] See Rx Instructions .ROUTE .MEDSUPPLY Qty: 100 4RF Rx Instructions: lancets to test 5 times per day. uses one touch nicotine [Nicoderm CQ] 21 mg/24 hr patch 24 hour 1 patch transdermal Q24H Qty: 28 0RF (DME) nebulizer tubing and supplies See Rx Instructions .Route .MEDSUPPLY Qty: 1 4RF Rx Instructions: As directed to be used with nebulizer machined. midst (DME) OXYGEN @ 3L PER N/C See Rx Instructions .Route .MEDSUPPLY Qty: 1 0RF Rx Instructions: As directed Miguelito Aerosphere 160-9-4.8 mcg/actuation HFA aerosol inhaler 2 inh inhalation BID 30 Days Qty: 10.7 11RF Combivent Respimat 20-100 mcg/actuation mist 1 puff inhalation Q6H Qty: 4 0RF (DME) oxygen sensor See Rx Instructions .Route .MEDSUPPLY Qty: 1 0RF Rx Instructions: As directed (DME) oxygen masks See Rx Instructions .Route .MEDSUPPLY Qty: 1 0RF Rx Instructions: As directed GlucaGen HypoKit 1 mg recon soln 1 mg SUBCUT Q20M PRN (Reason: hypoglycemia) Qty: 1 2RF Rx Instructions: until target blood sugar attained (DME) blood-glucose meter Kit See Rx Instructions .Route Qty: 1 0RF Rx Instructions: As directed CHECKING 5 TIMES DAILY (DME) NEBULIZER MACHINE AND TUBING See Rx Instructions .Route .MEDSUPPLY Qty: 1 0RF Rx Instructions: As directed clonidine HCl 0.1 mg tablet 0.1 mg PO TID Qty: 90 2RF insulin syringe-needle U-100 [BD Insulin Syringe Ultra-Fine] 1 mL 31 gauge x 5/16 syringe See Rx Instructions .ROUTE .COMPLEX Qty: 200 4RF Dose Instruction: USE EIGHT syringes PER DAY Rx Instructions: USE EIGHT syringes PER DAY prasugrel 10 mg tablet 10 mg PO DAILY Qty: 30 3RF sucralfate 1 gram tablet 1 g PO QID Qty: 120 3RF (DME) Blood Glucose Test Strip See Rx Instructions .Route Qty: 50 5RF Rx Instructions: As directed TESTING 5 TIMES DAILY Farxiga 5 mg tablet 5 mg PO QAM 30 Days Qty: 30 3RF Humulin N NPH U-100 Insulin 100 unit/mL suspension See Rx Instructions .ROUTE .COMPLEX Qty: 110 1RF Dose Instruction: inject 100 units SUBCUTANEOUSLY TWICE DAILY Rx Instructions: inject 100 units SUBCUTANEOUSLY TWICE DAILY potassium chloride 10 mEq capsule, extended release 10 meq PO DAILY Qty: 30 3RF fluticasone propionate 44 mcg/actuation HFA aerosol inhaler See Rx Instructions .ROUTE .COMPLEX 30 Days Qty: 31.8 2RF Dose Instruction: inhale TWO puffs into lungs TWICE DAILY Rx Instructions: inhale TWO puffs into lungs TWICE DAILY Lasix 40 mg tablet 20 mg PO DAILY Qty: 30 0RF Discharge Orders: Discharge ED (Routine); Ordered 01/27/23 Ordered By: Manny Pcihardo Referrals: Aracelis Ferguson MD [Primary Care Provider] - Discharge Diet: Usual diet Discharge Activity: Increase activity as tolerated Patient Instructions: Opioid Safety, Pain Management Activity Restrictions/Additional Instructions: You were seen today for R foot pain and swelling. Your x-ray was negative. The ultrasound of the artery flow in the right leg was normal. Your white count was normal Urised leg rate was mildly elevated. Recommend you start on some oral antibiotics for 1 week and follow-up with your primary care doctor. If you have any worsening or change of symptoms return. We also reviewed your previous venous duplex of the right lower extremity. Sign Out Sign Out Data: Patient Sign Out occurred on 01/27/23 at 07:16. Patient's care was discussed, and care was transferred from to Manny Pichardo DO. Coding Level of Care Code ED Fabric Worker Leader for Chg Fwd Documented by User: Manny Pichardo DO 01/27/23 07:45 HPI - Extremity Problem General: Chief complaint: Extremity Injury, Lower Stated complaint: Rt Foot Injury Time Seen by Provider: 01/27/23 05:13 PFSH ED PFSH: Medical History Abnormal x-ray Allergic rhinitis ASHD (arteriosclerotic heart disease) Asthma Colon cancer screening Colon cancer screening declined COPD exacerbation Diabetes mellitus type 2, insulin dependent Essential hypertension Hypoxia Pneumonia Prostate cancer screening Seasonal allergies Smoking addiction Family History Father Cancer Mother Diabetes Hyperlipidemia Hypertension Social History Smoking and tobacco status: never smoked Second hand smoke exposure: Yes Smoking risk assessment/counseling performed?: No Alcohol intake: unknown Substance/Drug Use: former 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 CBC is normal. Other laboratories pending. He will be checked out to the oncoming physician at shift change pending CRP, lactate, sed rate, and vascular ultrasound Care assumed from Dr. Olivier at change of shift. White count is normal sed rate mildly increased arterial studies in the right lower extremity are negative for any stenosis or thrombosis. He has had the swelling in his leg for some time he was ultrasounded last month for the same complaint there was no sign of DVT. We will discharge patient home he did have issue with evidently a pet turkey. There is no sign of fracture on his x-ray of his foot there is some mild redness to the dorsum of the foot we will put him on Bactrim for a week and recheck with his primary care doctor return if has any worsening symptoms or changes symptoms or develop fever. Or any other concerning symptoms. Medical Records I reviewed the patient's medical records. Lab Data I reviewed the patient's lab results. 01/27/23 05:38 01/27/23 05:38 Radiology Impressions Duplex Scan Lower Extremity Artery 01/27/23 05:24 IMPRESSION: No significant stenosis or occlusion. Foot X-Ray 01/27/23 05:24 IMPRESSION: No acute injury. Laboratory Results WBC 9.0 10^3/uL (4.0-10.0) 01/27/23 05:38 RBC 5.68 10^6/uL (4.1-5.3) H 01/27/23 05:38 Hgb 15.4 g/dL (11.7-16.6) 01/27/23 05:38 Hct 49.0 % (42.0-52.0) 01/27/23 05:38 MCV 86.3 fl (80-94) 01/27/23 05:38 MCH 27.1 pg (28.0-34.0) L 01/27/23 05:38 MCHC 31.4 g/dL (30.0-36.0) 01/27/23 05:38 RDW 15.9 % (12.1-15.1) H 01/27/23 05:38 Plt Count 226 10^3/cmm (130-400) 01/27/23 05:38 MPV 9.9 fL (7.4-10.4) 01/27/23 05:38 Neut % (Auto) 55.8 % 01/27/23 05:38 Lymph % (Auto) 24.7 % 01/27/23 05:38 [place] % (Auto) 13.7 % 01/27/23 05:38 Eos % (Auto) 3.7 % 01/27/23 05:38 Baso % (Auto) 0.9 % 01/27/23 05:38 Neut # (Auto) 5.04 10^3/uL (1.8-7.7) 01/27/23 05:38 Lymph # (Auto) 2.2 10^3/uL (0.8-4.8) 01/27/23 05:38 [place] # (Auto) 1.2 10^3/uL (0.2-0.9) H 01/27/23 05:38 Eos # (Auto) 0.3 10^3/uL (0.0-0.8) 01/27/23 05:38 Baso # (Auto) 0.1 10^3/uL (0.0-0.1) 01/27/23 05:38 Nucleated RBC % (auto) 0 % 01/27/23 05:38 Nucleated RBCs # 0.0 /100WBC 01/27/23 05:38 ESR 21 mm/hr (0-10) H 01/27/23 05:38 Sodium 136 mmol/L (136-145) 01/27/23 05:38 Potassium 4.1 mmol/L (3.5-5.1) 01/27/23 05:38 Chloride 101 mmol/L (98-107) 01/27/23 05:38 Carbon Dioxide 25 mmol/L (22-29) 01/27/23 05:38 Anion Gap 14.1 (5-19) 01/27/23 05:38 BUN 17 mg/dL (8-23) 01/27/23 05:38 Creatinine 0.8 mg/dL (0.7-1.2) 01/27/23 05:38 GFR Calculation 98.3 mL/min (90-130) 01/27/23 05:38 Glucose 114 mg/dL (65-115) 01/27/23 05:38 Calculated Osmolality 284 mOsm/kg (285-295) L 01/27/23 05:38 Lactate 1.6 mmol/L (0.5-2.2) 01/27/23 05:38 Calcium 9.2 mg/dL (8.5-10.5) 01/27/23 05:38 Total Bilirubin 0.5 mg/dL (0.15-1.2) 01/27/23 05:38 AST 32 U/L (0-40) 01/27/23 05:38 ALT 36 U/L (0-41) 01/27/23 05:38 Alkaline Phosphatase 119 U/L (40-130) 01/27/23 05:38 C-Reactive Protein 3.0 mg/L (0.0-4.9) 01/27/23 05:38 Total Protein 7.5 g/dL (6.6-8.7) 01/27/23 05:38 Albumin 3.9 g/dL (3.5-5.2) 01/27/23 05:38 Globulin 3.6 g/dL (1.3-4.6) 01/27/23 05:38 Discharge Plan Discharge Patient Disposition: Home Clinical Impression: Cellulitis Condition: Stable Prescriptions: New Bactrim DS 800-160 mg tablet 1 tab PO BID 7 Days Qty: 14 0RF No Action (DME) blood sugar diagnostic Strip See Rx Instructions .ROUTE .MEDSUPPLY Qty: 150 6RF Rx Instructions: to test 5 times per day nitroglycerin 0.4 mg tablet, sublingual 0.4 mg SUBLINGUAL Q5M PRN (Reason: chest pain) Qty: 25 0RF Rx Instructions: Place one tablet under tongue as needed for chest pain every 5 minutes up to 3 doses fluticasone propionate [Flonase Allergy Relief] 50 mcg/actuation spray,suspension 2 spray intranasal DAILY Qty: 16 6RF Rx Instructions: administer into each nostril fexofenadine [Vannessa Allergy] 180 mg tablet 180 mg PO DAILY Qty: 30 6RF (DME) DIABETIC SHOES See Rx Instructions .Route .MEDSUPPLY Qty: 1 0RF Rx Instructions: DIABETIC SHOES (DME) DIABETIC INSOLES See Rx Instructions .Route .MEDSUPPLY Qty: 1 0RF Rx Instructions: FOR USE WITH DIABETIC SHOES insulin lispro [Humalog U-100 Insulin] 100 unit/mL solution See Rx Instructions .ROUTE .COMPLEX Qty: 80 4RF Dose Instruction: inject 50 units SUBCUTANEOUSLY DIRECTED 3-5 times daily Rx Instructions: inject 50 units SUBCUTANEOUSLY DIRECTED 3-5 times daily metoprolol tartrate 25 mg tablet 12.5 mg PO BID Qty: 90 3RF ipratropium-albuterol 0.5 mg-3 mg(2.5 mg base)/3 mL solution for nebulization 3 ml inhalation QID PRN (Reason: wheezing) Qty: 180 1RF benzonatate 100 mg capsule 100 mg PO TID PRN (Reason: cough) Qty: 30 2RF levofloxacin 750 mg tablet 750 mg PO DAILY 5 Days Qty: 5 0RF prednisone 10 mg tablet 40 mg PO .COMPLEX Qty: 21 0RF Rx Instructions: 40 mg po for 2 days, then 3 tabs once daily for 2 days, then 2 tab once a day for 2 days, then 1 tab daily for 3 days temazepam 30 mg capsule 30 mg PO .QHS 90 Days Qty: 90 0RF albuterol sulfate [ProAir HFA] 90 mcg/actuation HFA aerosol inhaler See Rx Instructions .ROUTE .COMPLEX Qty: 17 3RF Dose Instruction: inhale TWO puffs into lungs EVERY 4 TO 6 HOURS NEEDED FOR SHORTNESS OF BREATH Rx Instructions: inhale TWO puffs into lungs EVERY 4 TO 6 HOURS NEEDED FOR SHORTNESS OF BREATH (DME) lancets [facility] [place] See Rx Instructions .ROUTE .MEDSUPPLY Qty: 100 4RF Rx Instructions: lancets to test 5 times per day. uses one touch nicotine [Nicoderm CQ] 21 mg/24 hr patch 24 hour 1 patch transdermal Q24H Qty: 28 0RF (DME) nebulizer tubing and supplies See Rx Instructions .Route .MEDSUPPLY Qty: 1 4RF Rx Instructions: As directed to be used with nebulizer machined. midst (DME) OXYGEN @ 3L PER N/C See Rx Instructions .Route .MEDSUPPLY Qty: 1 0RF Rx Instructions: As directed Breztri Aerosphere 160-9-4.8 mcg/actuation HFA aerosol inhaler 2 inh inhalation BID 30 Days Qty: 10.7 11RF Combivent Respimat 20-100 mcg/actuation mist 1 puff inhalation Q6H Qty: 4 0RF (DME) oxygen sensor See Rx Instructions .Route .MEDSUPPLY Qty: 1 0RF Rx Instructions: As directed (DME) oxygen masks See Rx Instructions .Route .MEDSUPPLY Qty: 1 0RF Rx Instructions: As directed GlucaGen HypoKit 1 mg recon soln 1 mg SUBCUT Q20M PRN (Reason: hypoglycemia) Qty: 1 2RF Rx Instructions: until target blood sugar attained (DME) blood-glucose meter Kit See Rx Instructions .Route Qty: 1 0RF Rx Instructions: As directed CHECKING 5 TIMES DAILY (DME) NEBULIZER MACHINE AND TUBING See Rx Instructions .Route .MEDSUPPLY Qty: 1 0RF Rx Instructions: As directed clonidine HCl 0.1 mg tablet 0.1 mg PO TID Qty: 90 2RF insulin syringe-needle U-100 [BD Insulin Syringe Ultra-Fine] 1 mL 31 gauge x 5/16 syringe See Rx Instructions .ROUTE .COMPLEX Qty: 200 4RF Dose Instruction: USE EIGHT syringes PER DAY Rx Instructions: USE EIGHT syringes PER DAY prasugrel 10 mg tablet 10 mg PO DAILY Qty: 30 3RF sucralfate 1 gram tablet 1 g PO QID Qty: 120 3RF (DME) Blood Glucose Test Strip See Rx Instructions .Route Qty: 50 5RF Rx Instructions: As directed TESTING 5 TIMES DAILY Farxiga 5 mg tablet 5 mg PO QAM 30 Days Qty: 30 3RF Humulin N NPH U-100 Insulin 100 unit/mL suspension See Rx Instructions .ROUTE .COMPLEX Qty: 110 1RF Dose Instruction: inject 100 units SUBCUTANEOUSLY TWICE DAILY Rx Instructions: inject 100 units SUBCUTANEOUSLY TWICE DAILY potassium chloride 10 mEq capsule, extended release 10 meq PO DAILY Qty: 30 3RF fluticasone propionate 44 mcg/actuation HFA aerosol inhaler See Rx Instructions .ROUTE .COMPLEX 30 Days Qty: 31.8 2RF Dose Instruction: inhale TWO puffs into lungs TWICE DAILY Rx Instructions: inhale TWO puffs into lungs TWICE DAILY Lasix 40 mg tablet 20 mg PO DAILY Qty: 30 0RF Discharge Orders: Discharge ED (Routine); Ordered 01/27/23 Ordered By: Manny Pichardo Referrals: Aracelis Ferguson MD [Primary Care Provider] - Discharge Diet: Usual diet Discharge Activity: Increase activity as tolerated Patient Instructions: Opioid Safety, Pain Management Activity Restrictions/Additional Instructions: You were seen today for R foot pain and swelling. Your x-ray was negative. The ultrasound of the artery flow in the right leg was normal. Your white count was normal Urised leg rate was mildly elevated. Recommend you start on some oral antibiotics for 1 week and follow-up with your primary care doctor. If you have any worsening or change of symptoms return. We also reviewed your previous venous duplex of the right lower extremity. Sign Out Sign Out Data: Patient Sign Out occurred on 01/27/23 at 07:16. Patient's care was discussed, and care was transferred from to Manny Pichardo DO. Coding Level of Care Code ED Fabric Worker Leader for [place]
[2023-01-27 05:51] LABS: Basophils # 0.1 10^3/uL (0.0-0.1); Basophils % 0.9 %; Eosinophils # 0.3 10^3/uL (0.0-0.8); Eosinophils % 3.7 %; Hemoglobin 15.4 g/dL (11.7-16.6); Lymphocytes # 2.2 10^3/uL (0.8-4.8); Lymphocytes % 24.7 %; Mean Corpuscular HGB Conc 31.4 g/dL (30.0-36.0); Mean Corpuscular Hemoglobin 27.1 pg (28.0-34.0); Mean Corpuscular Volume 86.3 fl (80-94); Mean Platelet Volume 9.9 fL (7.4-10.4); Monocytes # 1.2 10^3/uL (0.2-0.9); Monocytes % 13.7 %; Neutrophils # 5.04 10^3/uL (1.8-7.7); Neutrophils % 55.8 %; Nucleated Red Blood Cells % 0 %; Platelet Count 226 10^3/cmm (130-400); Red Blood Count 5.68 10^6/uL (4.1-5.3); Red Cell Distribution Width 15.9 % (12.1-15.1)
[2023-01-27 06:03] LABS: Erythrocyte Sedimentation Rate 21 mm/hr (0-10)
[2023-01-27 06:10] LABS: Lactate (Lactic Acid level) 1.6 mmol/L (0.5-2.2)
[2023-01-27 06:11] LABS: Alanine Aminotransferase 36 U/L (0-41); Albumin Level 3.9 g/dL (3.5-5.2); Alkaline Phosphatase 119 U/L (40-130); Anion Gap 14.1 (5-19); Aspartate Amino Transferase 32 U/L (0-40); Blood Urea Nitrogen 17 mg/dL (8-23); Calcium 9.2 mg/dL (8.5-10.5); Carbon Dioxide 25 mmol/L (22-29); Chloride 101 mmol/L (98-107); Globulin 3.6 g/dL (1.3-4.6); Glomerular Filtration Rate 98.3 mL/min (90-130); Glucose 114 mg/dL (65-115); Osmolality Calculated 284 mOsm/kg (285-295); Potassium 4.1 mmol/L (3.5-5.1); Sodium 136 mmol/L (136-145); Total Bilirubin 0.5 mg/dL (0.15-1.2); Total Protein 7.5 g/dL (6.6-8.7)
[2023-01-27 07:53] VITALS: BP 151/106; PULSE 99; O2SAT 94
== END 2023-01-27 07:54 | disposition home or self-care (01) ==
PROVIDERS: Emergency Medicine; Emergency Provider Family Medicine; PCP Family Medicine
DX: L03.115 Cellulitis of right lower limb (principal); Z79.4 Long term (current) use of insulin; J44.9 Chronic obstructive pulmonary disease, unspecified; E11.9 Type 2 diabetes mellitus without complications; I10 Essential (primary) hypertension
CPT/HCPCS: 73630; 80053; 83605; 85025; 85651; 86140; 93926; 99284

== ENCOUNTER 2023-02-10 11:30 | Outpatient (CLI) | payer MEDICAID, SELFPAY | END 2023-02-10 11:31 | disposition home or self-care (01) | LOC: SLEEP 02-11 13:58 | PROVIDERS: PCP Family Medicine; Visit Provider Family Medicine | DX: G47.33 Obstructive sleep apnea (adult) (pediatric) (principal); R09.02 Hypoxemia | CPT/HCPCS: G0399 ==

== ENCOUNTER → 2023-04-03 16:21 | Outpatient (BNVA) | payer MEDICAID, SELFPAY | PROVIDERS: PCP Family Medicine; Visit Provider Nurse Practitioner Family | DX: R60.9 Edema, unspecified (principal); I10 Essential (primary) hypertension; E11.9 Type 2 diabetes mellitus without complications; Z79.4 Long term (current) use of insulin; J44.1 Chronic obstructive pulmonary disease with (acute) exacerbation; K21.9 Gastro-esophageal reflux disease without esophagitis; R06.09 Other forms of dyspnea; J98.8 Other specified respiratory disorders | CPT/HCPCS: 80053; 83036; 83880; 86618; 86666; 86757; 87070; 87205 ==

== ENCOUNTER 2023-05-15 13:01 | Outpatient (CLI) | payer MEDICAID, SELFPAY ==
--- NOTE | 2023-05-15 13:15 | USCV_ITS ---
Ottoniel Rollins Age: 62 Gender: M : 1960 Exam Date: 05/15/2023 13:43 Ordering Phys: Clau Wong NP Technologist: ANAHI Exam Location: [facility] [place] Indication: COPD, CHF BP: 124 / 78 HR: 96 Rhythm: Sinus Technical Quality: Adequate MEASUREMENTS (Male / Female) Normal Values 2D ECHO LV Diastolic Diameter PLAX 5.2 cm 4.2 - 5.9 / 3.9 - 5.3 cm LV Systolic Diameter PLAX 4.3 cm IVS Diastolic Thickness 1.2 cm 0.6 - 1.0 / 0.6 - 0.9 cm IVS Systolic Thickness 1.7 cm LVPW Diastolic Thickness 1.6 cm 0.6 - 1.0 / 0.6 - 0.9 cm LVPW Systolic Thickness 1.6 cm LVOT Diameter 2.1 cm LV Ejection Fraction 2D Teich 37.2 % LV Ejection Fraction MOD 2C 14.3 % LV Ejection Fraction 2C AL 10.3 % LA Diameter 5.0 cm LA Width 4.0 cm LA Height 6.0 cm RA Width 5.2 cm RA Height 6.0 cm Aorta at Sinotubular Diameter 2.6 cm IVC Diameter 2.4 cm M-MODE Aortic Annulus Diameter 3.2 cm LA Ao Ratio MM 1.6 MV E Point Septal Separation 1.6 cm DOPPLER AV Peak Velocity 103.0 cm/s LVOT Peak Velocity 70.0 cm/s AV Area Cont Eq vti 2.5 cm squared AV Area Cont Eq pk 2.3 cm squared MV Area PHT 4.5 cm squared Mitral E to A Ratio 4.8 MV E' Velocity 64.0 cm/s Mitral E to MV E' Ratio 18.6 Mitral E to LV E' Lateral Ratio 16.8 Mitral E to LV E' Septal Ratio 21.2 TR Peak Velocity 381.0 cm/s TR Peak Gradient 58.1 mmHg Right Atrial Pressure 5.0 mmHg Pulmonary Artery Systolic Pressu 63.1 mmHg PV Peak Velocity 72.0 cm/s RV Acceleration Time 0.1 s RV Ejection Time 0.3 s RV AcT/ET 0.4 FINDINGS Left Ventricle Diffuse hypokinesia of the left ventricle with an ejection fraction of 25%, visual. Right Ventricle The right ventricle is normal in size and function. Right Atrium Mildly increased right atrial size. Left Atrium Mildly increased left atrial size. Mitral Valve Mildly thickened mitral valve. Moderate-severe mitral valve regurgitation. Aortic Valve No gross abnormalities noted Tricuspid Valve [id number] tricuspid valve regurgitation. Moderate pulmonary hypertension with an estimated pulmonary artery peak systolic pressure of 63 mm of Hg Pulmonic Valve No gross abnormalities noted Pericardium Normal pericardium without effusion. Aorta Normal ascending aorta dimension. IVC Normal inferior vena cava. CONCLUSIONS Diffuse hypokinesia of the left ventricle with an ejection fraction of 25%,( visual.) Mild biatrial enlargement. Mildly thickened mitral valve. Moderate-severe mitral valve regurgitation. [id number] tricuspid valve regurgitation. Moderate pulmonary hypertension with an estimated pulmonary artery peak systolic pressure of 63 mm of Hg. There is no pericardial effusion. There are no intracardiac masses. No similar previous studies are available for comparison Dr Adithya Paulson MD [facility] (Electronically Signed) Final Date: 16 May 2023 08:14 S
== END 2023-05-15 13:02 | disposition home or self-care (01) ==
PROVIDERS: PCP Nurse Practitioner Family; Referring Provider Internal Medicine Cardiovascular Disease; Visit Provider Nurse Practitioner Family
DX: I11.0 Hypertensive heart disease with heart failure (principal); I50.9 Heart failure, unspecified; J44.9 Chronic obstructive pulmonary disease, unspecified; I44.0 Atrioventricular block, first degree; R07.9 Chest pain, unspecified; I34.0 Nonrheumatic mitral (valve) insufficiency; I07.1 Rheumatic tricuspid insufficiency; I25.10 Atherosclerotic heart disease of native coronary artery without angina pectoris; G47.30 Sleep apnea, unspecified; E11.9 Type 2 diabetes mellitus without complications; Z98.61 Coronary angioplasty status; Z79.4 Long term (current) use of insulin
CPT/HCPCS: 36415; 80048; 83880; 86618; 86666; 86757; 93005; 93306; 99214

== ENCOUNTER → 2023-07-22 11:28 | Outpatient (BNVA) | payer MEDICAID, SELFPAY | PROVIDERS: PCP Nurse Practitioner Family; Visit Provider Nurse Practitioner Family | DX: E11.9 Type 2 diabetes mellitus without complications (principal); Z79.4 Long term (current) use of insulin; E78.00 Pure hypercholesterolemia, unspecified; I50.9 Heart failure, unspecified; K21.9 Gastro-esophageal reflux disease without esophagitis; I10 Essential (primary) hypertension; I25.10 Atherosclerotic heart disease of native coronary artery without angina pectoris; J44.1 Chronic obstructive pulmonary disease with (acute) exacerbation; J30.9 Allergic rhinitis, unspecified; J44.9 Chronic obstructive pulmonary disease, unspecified; J98.8 Other specified respiratory disorders; I25.810 Atherosclerosis of coronary artery bypass graft(s) without angina pectoris; G47.00 Insomnia, unspecified; R05.9 Cough, unspecified | CPT/HCPCS: 80053; 80061; 83036 ==

== ENCOUNTER → 2023-10-29 11:33 | Outpatient (BNVA) | payer MEDICAID, SELFPAY | PROVIDERS: PCP Nurse Practitioner Family; Visit Provider Nurse Practitioner Family | DX: J44.1 Chronic obstructive pulmonary disease with (acute) exacerbation (principal); E11.69 Type 2 diabetes mellitus with other specified complication; E11.9 Type 2 diabetes mellitus without complications; Z79.4 Long term (current) use of insulin; K21.9 Gastro-esophageal reflux disease without esophagitis; J30.2 Other seasonal allergic rhinitis; J30.9 Allergic rhinitis, unspecified; J44.9 Chronic obstructive pulmonary disease, unspecified; I10 Essential (primary) hypertension; I25.810 Atherosclerosis of coronary artery bypass graft(s) without angina pectoris; R05.9 Cough, unspecified; G47.00 Insomnia, unspecified; I50.9 Heart failure, unspecified | CPT/HCPCS: 80053; 80061; 83036 ==